=== PATIENT | male | born 1960 | race Caucasian/White ===

== ENCOUNTER → 2023-10-04 07:21 | Outpatient (REF) | payer OTHER, SELFPAY | LOC: RAD 07:21 | PROVIDERS: ATTENDING PHYSICIAN Surgery; FAMILY PHYSICIAN Family Medicine | DX: K43.9 Ventral hernia without obstruction or gangrene (principal) | CPT/HCPCS: 74177; Q9967 ==

== ENCOUNTER → 2023-10-24 10:36 | Outpatient (REF) | payer OTHER, SELFPAY ==
[2023-10-24 11:04] VITALS: BP 123/82; BP_SYST 63
[2023-10-24 13:27] VITALS: BP 103/76
== END ==
LOC: RADI 10:36
PROVIDERS: ATTENDING PHYSICIAN Surgery; FAMILY PHYSICIAN Family Medicine
DX: K43.9 Ventral hernia without obstruction or gangrene (principal)
CPT/HCPCS: 64647; 76942; 99152; 99153; J0585

== ENCOUNTER → 2023-11-04 07:35 | Outpatient (REF) | payer OTHER, SELFPAY | LOC: RAD 07:35 | PROVIDERS: ATTENDING PHYSICIAN Nurse Practitioner Family; FAMILY PHYSICIAN Family Medicine | DX: F17.210 Nicotine dependence, cigarettes, uncomplicated (principal) | CPT/HCPCS: 71271 ==

== ENCOUNTER 2023-11-30 06:17 | Inpatient (IN) | payer MEDICARE, OTHER, SELFPAY ==
[2023-11-22 07:05] VITALS: BMI 32.9
[2023-11-22 09:21] LABS: Hematocrit 49.5 % (39.0-52.0); Hemoglobin 16.8 g/dL (13.0-18.0); Mean Corp Hgb Conc. 33.9 g/dL (33.0-37.0); Mean Corpuscular Hgb 30.3 pg (27.0-31.0); Mean Corpuscular Volume 89.2 fL (80.0-94.0); Mean Platelet Volume 9.5 fL (7.4-10.4); Platelet Count 170 10^3/uL (130-400); Red Blood Cell Count 5.55 10^6/uL (4.70-6.10); Red Cell Dist. Width 12.5 % (11.5-14.5); White Blood Cell Count 5.9 10^3/uL (4.8-10.8)
[2023-11-22 09:35] LABS: Blood Urea Nitrogen 25 mg/dl (9-20); Calcium 9.8 mg/dl (8.4-10.2); Carbon Dioxide 28 mmol/L (22-30); Chloride 100 mmol/L (98-107); Estimated Creatinine Clearance 123 ml/min; Glucose 102 mg/dl (70-99); Potassium 4.4 mmol/L (3.5-5.1); Sodium 138 mmol/L (135-145); eGFR > 60.00
[2023-11-30] VITALS (16 sets, daily range): BP systolic 5–120; BP diastolic 62–79; BMI 32.9
[2023-11-30] MEDS: TYLENOL 1000 MG PO (08:15)
[2023-11-30] MEDS: NORMOSOL-R 1000 IV (08:15)
--- NOTE | 2023-11-30 15:53 | W.IMMPOSTOP ---
Addendum entered and electronically signed by Refugio Snider MD 12/21/23 13:47:
Dic# [id number]
Original Note:
Surgical Immed Post Op Note
-
Primary Surgeon: Tylor
Assisting Surgeon: Stephanie
Pre-op Diagnosis: Recurrent ventral incisional hernia
Post-op Diagnosis: Recurrent ventral incisional hernia
Procedure Performed: Open recurrent ventral incisional hernia repair with mesh, bilateral posterior myofascial releases (TAR), extensive lysis of adhesions
Anesthesia Type: General
Specimen / Cultures: None
Estimated Blood Loss: 23 cc
Complications: None
Operative Findings:
1. Extensive filmy adhesions in upper abdomen, denser adhesions of small bowel within pelvis, no serosal tears or enterotomies
2. Fascial defect approximately 17 x 23 cm
3. Bilateral posterior myofascial releases (TAR)
4. Posterior primary closure with 2-0 Stratafix spiral PDS
5. Prolene 45 x 50 cm mesh
6. Anterior primary closure incorporating hernia sac with #1 Stratafix symmetric PDS
7. RIGHT lower RIVERA into posterior rectus inferior space, LEFT RIVERA into posterior rectus cranial space, RIGHT upper RIVERA into subcutaneous space
[2023-11-30] MEDS: DILAUDID 0.5 MG IV ×2 (16:19→20:15)
[2023-11-30] MEDS: TORADOL 10 MG IV (17:32)
[2023-11-30] MEDS: DEMEROL 12.5 MG IV (17:53)
--- NOTE | 2023-11-30 20:00 | PTCARENOTE ---
Received pt from PACU in room 2125. AAOx3. VSS. On 3L NC with pox 94%. Medial Abdomen has Aquacel dressing that is dry and intact. Two RIVERA drains on the right and one on the left, dressings dry and intact. Reporting moderate-severe pain. See
assessment. Patient oriented to room, resting comfortably in bed with call triplett within reach.
[2023-11-30] MEDS: TYLENOL 650 MG PO (20:14)
[2023-11-30] MEDS: NORMOSOL-R IV (22:30)
[2023-12-01] MEDS: TYLENOL 650 MG PO ×5 (00:02→20:06)
[2023-12-01] MEDS: DILAUDID 0.5 MG IV ×4 (01:55→20:22)
[2023-12-01 03:15] VITALS: BP 127/74
[2023-12-01] MEDS: TYLENOL PO (03:54)
[2023-12-01] MEDS: NORMOSOL-R 1000 IV ×2 (04:47→16:19)
[2023-12-01 06:00] VITALS: BMI 32.0
[2023-12-01 06:25] LABS: Hematocrit 44.1 % (39.0-52.0); Hemoglobin 15.3 g/dL (13.0-18.0); Mean Corp Hgb Conc. 34.7 g/dL (33.0-37.0); Mean Corpuscular Hgb 30.1 pg (27.0-31.0); Mean Corpuscular Volume 86.8 fL (80.0-94.0); Platelet Count 189 10^3/uL (130-400); Red Blood Cell Count 5.08 10^6/uL (4.70-6.10); Red Cell Dist. Width 12.7 % (11.5-14.5)
--- NOTE | 2023-12-01 06:41 | PTCARENOTE ---
Removed carmen catheter at about 0630 per order. Patient resting comfortably but motivated to ambulate this AM. Call triplett within reach.
[2023-12-01 06:54] LABS: Blood Urea Nitrogen 23 mg/dl (9-20); Calcium 8.1 mg/dl (8.4-10.2); Carbon Dioxide 27 mmol/L (22-30); Chloride 99 mmol/L (98-107); Estimated Creatinine Clearance 121 ml/min; Glucose 141 mg/dl (70-99); Potassium 4.1 mmol/L (3.5-5.1); Sodium 135 mmol/L (135-145); eGFR > 60.00
[2023-12-01 07:00] VITALS: BP 114/78
--- NOTE | 2023-12-01 07:50 | W.PN.GS2 ---
Today's Communication / Plan
-
-- Clears ADAT to fulls
-- Pain control: Tylenol, Toradol, Oxycodone, IV Dilaudid PRN
-- Decrease IVF
-- Home statin, Flomax and BB, hold on other HTN meds for now (likely resume tomorrow)
-- OOB/ambulate, IS
Assessment / Plan
-
Patient is a 62 yo M POD#1 s/p open recurrent ventral incisional hernia repair with mesh, bilateral myofascial releases, extensive lysis of adhesions
Recovering well. No postoperative concerns.
-- Clears ADAT to fulls
-- Pain control: Tylenol, Toradol, Oxycodone, IV Dilaudid PRN
-- Decrease IVF
-- Home statin, Flomax and BB, hold on other HTN meds for now (likely resume tomorrow)
-- OOB/ambulate, IS
-- DVT: Lovenox
-- Maintain JPs (likely need on DC)
-- Floor status
Subjective Data
-
Date of Service: December 01, 2023
No major complaints. Pain overall well-controlled. No nausea or vomiting. No flatus or BM. Parham removed, due to void. No ambulation yet postop.
Objective Data
-
Intake and Output
11/30/23 12/01/23 12/02/23
06:59 06:59 06:59
Intake Total 3200 / 3200
Output Total 1520 / 1520
Balance 1680 / 1680
Intake:
Oral fluids 1200 / 1200
IV fluids (Total) 2000 / 2000
norm 800 / 800
Output:
Drain Output (Total) 320 / 320
Left Lower Abdomen Benigno- 55 / 55
Whitaker A
Right Lower Abdomen Benigno- 125 / 125
Whitaker B
Right Lower Abdomen Benigno- 140 / 140
Whitaker C
Urine, Parham 1200 / 1200
Vital Signs
Temp Pulse Resp BP Pulse Ox
97.7 F 92 18 127/74 93
12/01/23 03:15 12/01/23 03:15 12/01/23 03:15 12/01/23 03:15 12/01/23 03:15
Lab Results
12/01/23 05:44
12/01/23 05:44
Calcium 8.1 mg/dl (8.4-10.2) L 12/01/23 05:44
Physical Exam
-
Gen: NAD
Abd: soft, mild tenderness, ND, non-peritoneal, midline dressing c/d/i, RIVERA thin light sanguinous
[2023-12-01] MEDS: TOPROL XL 25 MG PO (09:27)
[2023-12-01] MEDS: CRESTOR 40 MG PO (09:27)
[2023-12-01] MEDS: FLOMAX 0.800000000000000044 MG PO (09:28)
[2023-12-01 11:15] VITALS: BP 116/72
--- NOTE | 2023-12-01 14:30 | CM ---
POD #1 incisional hernia repair: Initial assessment completed with patient with and daughter in room. Patient lives with his , son, D-I-L and 2 y/o granddaughter in a 1 story home with basement and 3+3 steps to enter, [employer] was independent
and drove. DME in home but does not use is [facility], Quad cane and RW, no in-home services, no psychiatric hospitalizations. Pharmacy is [facility] on [address] [facility] in [place] and PCP is Dr. Shar Simpson. Discharge Plan of Care: Anticipate home with no needs.
If drains remain then HH VN. Preference if [facility].
[2023-12-01 15:00] VITALS: BP 104/64
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
--- NOTE | 2023-12-01 17:31 | W.PN.SURGUPD ---
Surgical Update
Surgical Update
Report from nursing that patient complaints of RIGHT shoulder pain and a lump on his head. Positioning in OR with bl arms out for improved IV access by anesthesia, likely stiff from positioning as an acute on chronic issue. Cannot explain lump on
head. No reported neuro issues. No issues with positioning or patient safety during OR proceedings. No reports to my knowledge of trauma post-op. X-ray shoulder and CT head ordered. Attempted to call patients room, no response. Will discuss
with patient further tomorrow.
[2023-12-01] MEDS: LOVENOX 40 MG SC (18:38)
[2023-12-01] MEDS: ROXICODONE 5 MG PO (22:42)
[2023-12-01 22:49] VITALS: BP 101/56
[2023-12-02] MEDS: TYLENOL 650 MG PO ×6 (00:30→23:36)
[2023-12-02] MEDS: DILAUDID 0.5 MG IV ×3 (00:43→23:36)
[2023-12-02] MEDS: NORMOSOL-R 1000 IV (02:35)
[2023-12-02 07:00] LABS: Hematocrit 39.2 % (39.0-52.0); Hemoglobin 13.9 g/dL (13.0-18.0); Mean Corp Hgb Conc. 35.5 g/dL (33.0-37.0); Mean Corpuscular Hgb 30.9 pg (27.0-31.0); Mean Corpuscular Volume 87.1 fL (80.0-94.0); Platelet Count 155 10^3/uL (130-400); Red Cell Dist. Width 12.9 % (11.5-14.5); White Blood Cell Count 9.2 10^3/uL (4.8-10.8)
[2023-12-02 07:01] VITALS: BP 128/73
[2023-12-02 07:21] LABS: Blood Urea Nitrogen 18 mg/dl (9-20); Calcium 8.3 mg/dl (8.4-10.2); Carbon Dioxide 26 mmol/L (22-30); Chloride 102 mmol/L (98-107); Estimated Creatinine Clearance > 125 ml/min; Glucose 98 mg/dl (70-99); Potassium 3.5 mmol/L (3.5-5.1); Sodium 135 mmol/L (135-145); eGFR > 60.00
[2023-12-02] MEDS: FLOMAX 0.800000000000000044 MG PO (07:35)
[2023-12-02] MEDS: CRESTOR 40 MG PO (07:35)
[2023-12-02] MEDS: TOPROL XL 25 MG PO (07:35)
[2023-12-02] MEDS: TYLENOL PO (07:35)
--- NOTE | 2023-12-02 07:37 | W.PN.GS2 ---
Today's Communication / Plan
-
-- Regular diet
-- HLIV
-- Abdominal binder
Assessment / Plan
-
Patient is a 62 yo M POD#2 s/p open recurrent ventral incisional hernia repair with mesh, bilateral myofascial releases, extensive lysis of adhesions
Recovering well. No postoperative concerns.
-- Regular diet
-- Pain control: Tylenol, Toradol, Oxycodone, IV Dilaudid PRN
-- HLIV
-- Home statin, Flomax and BB, hold on other HTN meds for now (BP softer, holding for now)
-- OOB/ambulate, IS
-- DVT: Lovenox
-- Maintain US with therapy JPs (likely need on DC), abdominal binder
-- Floor status
Subjective Data
-
Date of Service: December 02, 2023
Complains of back, shoulder, and abdominal soreness. No nausea or vomiting. Passing minimal flatus, no BM. No fevers. Ambulating. Voiding.
Objective Data
-
Intake and Output
12/01/23 12/02/23 12/03/23
06:59 06:59 06:59
Intake Total 3200 / 3200 2440 / 2440
Output Total 1520 / 1520 2420 / 2420
Balance 1680 / 1680 20 / 20
Intake:
Oral fluids 1200 / 1200 1480 / 1480
IV fluids (Total) 2000 / 1999 960 / 960
norm 800 / 800
Output:
Drain Output (Total) 320 / 320 390 / 390
Left Lower Abdomen Benigno- 55 / 55 130 / 130
Whitaker A
Right Lower Abdomen Beningo- 125 / 125 170 / 170
Whitaker B
Right Lower Abdomen Benigno- 140 / 140 90 / 90
Whitaker C
Urine, Parham 1200 / 1200
Urine, Voided 2029
Vital Signs
Temp Pulse Resp BP Pulse Ox
98.3 F 85 20 128/73 93
12/02/23 07:01 12/02/23 07:35 12/02/23 07:01 12/02/23 07:35 12/02/23 07:01
Lab Results
12/02/23 06:16
12/02/23 06:16
Calcium 8.3 mg/dl (8.4-10.2) L 12/02/23 06:16
Physical Exam
-
Gen: NAD
Abd: soft, appropriately tender to palpation, minimal distension, non-peritoneal, midline incision c/d/i, JPs serosang
[2023-12-02 10:00] VITALS: BMI 32.0
[2023-12-02 15:00] VITALS: BP 140/50
[2023-12-02] MEDS: ROXICODONE 5 MG PO ×2 (15:36→20:15)
[2023-12-02] MEDS: LOVENOX 40 MG SC (17:21)
--- NOTE | 2023-12-02 18:41 | CM ---
Discharge Plan of Care: Home with VN if RIVERA drains remain after discharge.
[2023-12-02 23:50] VITALS: BP 113/73
[2023-12-03] MEDS: ROXICODONE 5 MG PO ×3 (04:04→14:46)
[2023-12-03] MEDS: TYLENOL 650 MG PO ×5 (04:05→20:27)
[2023-12-03] MEDS: TUMS 2 TABLET PO (04:21)
[2023-12-03 04:58] LABS: Hemoglobin 14.3 g/dL (13.0-18.0); Mean Corp Hgb Conc. 34.9 g/dL (33.0-37.0); Mean Corpuscular Hgb 30.8 pg (27.0-31.0); Mean Corpuscular Volume 88.4 fL (80.0-94.0); Mean Platelet Volume 9.2 fL (7.4-10.4); Platelet Count 151 10^3/uL (130-400); Red Blood Cell Count 4.64 10^6/uL (4.70-6.10); Red Cell Dist. Width 12.8 % (11.5-14.5); White Blood Cell Count 9.3 10^3/uL (4.8-10.8)
[2023-12-03 05:21] LABS: Blood Urea Nitrogen 19 mg/dl (9-20); Calcium 8.6 mg/dl (8.4-10.2); Carbon Dioxide 25 mmol/L (22-30); Chloride 104 mmol/L (98-107); Estimated Creatinine Clearance > 125 ml/min; Glucose 99 mg/dl (70-99); Potassium 3.8 mmol/L (3.5-5.1); Sodium 137 mmol/L (135-145); eGFR > 60.00
[2023-12-03 07:05] VITALS: BP 133/79
[2023-12-03] MEDS: TOPROL XL 25 MG PO (08:09)
[2023-12-03] MEDS: FLOMAX 0.800000000000000044 MG PO (08:14)
[2023-12-03] MEDS: CRESTOR 40 MG PO (08:14)
[2023-12-03 09:50] VITALS: BMI 31.8
--- NOTE | 2023-12-03 10:55 | W.PN.GS2 ---
Today's Communication / Plan
-
dispo planning
Assessment / Plan
-
Patient is a 62 yo M POD#3 s/p open recurrent ventral incisional hernia repair with mesh, bilateral myofascial releases, extensive lysis of adhesions
Recovering well. No postoperative concerns.
AFVSS
O2 discontinued, sat 94% on RA
-- Regular diet
-- Pain control prn
-- Resume home meds
-- OOB/ambulate, IS
-- DVT: Lovenox
-- Maintain US with therapy JPs (likely need on DC), abdominal binder
Tentative d/c later today vs tomorrow
Subjective Data
-
Date of Service: December 03, 2023
Patient seen and examined at bedside with Dr. Irizarry. Denies n/v. Tolerating diet. Pain well managed. Passing flatus.
Objective Data
-
Intake and Output
12/02/23 12/03/23 12/04/23
06:59 06:59 06:59
Intake Total 2440 / 2440 480 / 480
Output Total 2420 / 2420 253 / 253
Balance 20 / 20 227 / 227
Intake:
Oral fluids 1480 / 1480 480 / 480
IV fluids (Total) 960 / 960
Output:
Drain Output (Total) 390 / 390 253 / 253
Left Lower Abdomen Benigno- 130 / 130 94 / 94
Whitaker A
Right Lower Abdomen Benigno- 170 / 170 74 / 74
Whitaker B
Right Lower Abdomen Benigno- 90 / 90 85 / 85
Whitaker C
Urine, Voided 2029 / 2029
Other:
Number of approximated MODERATE 3
amounts of urine
Vital Signs
Temp Pulse Resp BP Pulse Ox
97.8 F 75 18 133/89 94
12/03/23 07:05 12/03/23 08:09 12/03/23 07:05 12/03/23 08:09 12/03/23 10:11
Lab Results
12/03/23 04:25
12/03/23 04:25
Calcium 8.6 mg/dl (8.4-10.2) 12/03/23 04:25
Physical Exam
-
Gen: NAD
Abd: soft, appropriately tender to palpation, minimal distension, non-peritoneal, midline incision intact dermabond, JPs serosang
[2023-12-03] MEDS: ZESTRIL 2.5 MG PO (11:30)
[2023-12-03] MEDS: COLACE 100 MG PO ×2 (11:30→20:27)
--- NOTE | 2023-12-03 14:48 | W.DCSUMMARY ---
Discharge Summary
Discharge Data
Date of Admission: 11/30/23
Date of Discharge: 12/04/23
-
Pending Results: No
Hospital Course
62 yo male with a history of recurrent ventral incisional hernia who presented for scheduled repair. He underwent open recurrent ventral incisional hernia repair with mesh, bilateral posterior myofascial releases (TAR), and extensive lysis of
adhesions. Three RIVERA drains were left in place post operatively and upon discharge for removal in the outpatient setting. Diet was able to be advanced and well tolerated with resumption of home meds post operatively. He was able to void after removal
of perioperative carmen. He was discharged to home with family once pain was well controlled and he had return of bowel function.
Discharge Plan
-
Patient Disposition: Home (Routine Discharge)
Discharge Diagnosis/Procedures: Open abdominal incisional hernia repair with mesh and bilateral muscle releases
Condition: Good
Diet: Regular
Activity: No strenuous activity
Additional Activity: No heavy lifting (>20 lb) or strenuous activities for 6 weeks postoperatively
Driving Restrictions: No driving if too sore or taking narcotics
Bathing Restrictions: OK to Shower
Wound Care: Keep incision clean and dry. Glue will flake off in 2 to 3 weeks. Stitches will dissolve. Use abdominal binder for 4 to 6 weeks postoperatively. RIVERA drains to be removed in the office. Empty RIVERA's and record outputs daily. Call when
outputs for a RIVERA are less than 20 mL over a 48-hour period.
Activity Restrictions/Additional Instructions:
Call for fevers (>100.5), worsening abdominal pain, nausea or vomiting
Instructions: Benigno-Whitaker Drain, How to Keep Track of Your Drainage
Referrals:
Shar Simpson MD [Family Provider] -
Refugio Snider MD [Active] - in two to four weeks
Prescriptions:
New
ibuprofen 200 mg tablet
400 - 600 mg PO Q6HPRN PRN (Reason: moderate pain) Qty: 1 0RF
oxycodone 5 mg tablet
5 mg PO Q4HPRN PRN (Reason: breakthrough/severe pain) Qty: 20 0RF
Continued
aspirin 81 MG tablet,delayed release (DR/EC)
81 mg PO DAILY
ascorbic acid (vitamin C) [Vitamin C] 500 MG tablet
1,000 mg PO DAILY
Glucosamine Sulf-Chondroitin 1 EACH capsule
2 cap PO DAILY
Men 50 Plus Multivitamin 1 EACH tablet
1 ea PO DAILY
zinc acetate 50 mg (zinc) Capsule
50 mg PO DAILY
metoprolol succinate 25 mg Tablet Extended Release 24 Hr
25 mg PO DAILY
tamsulosin 0.4 MG capsule
0.8 mg PO DAILY
acetaminophen [Tylenol] 325 mg Capsule
650 mg PO Q4H PRN (Reason: pain)
folic acid 400 mcg Tablet
0.4 mg PO DAILY
hydrochlorothiazide 25 mg Tablet
25 mg PO DAILY
cholecalciferol (vitamin D3) [Vitamin D3] 50 mcg (2,000 unit) Capsule
50 mcg PO DAILY
lisinopril 2.5 mg Tablet
2.5 mg PO DAILY
rosuvastatin 40 mg Tablet
40 mg PO DAILY
docusate sodium [Stool Softener] 100 mg Capsule
100 mg PO BID
Discharge Orders:
Discharge Patient (As Directed); Ordered 12/04/23
Ordered By: Bhumi Griffith
Discharge Date and Time
Print Language: MOHAWK
[2023-12-03 15:00] VITALS: BP 107/66
--- NOTE | 2023-12-03 15:30 | CM ---
CM following re: discharge planning.
Reviewed pt's chart, met with pt.
According to pt will be discharged home tomorrow. Pt is aware, expressed his agreement and he stated his daughter will transport home. IMM reviewed, placed on chart, pt has a copy.
Pt will have have drain at discharge. Pt stated he knows how to care and accepted VN services: RN for drain care. Pt preferred [facility]. A referral to [facility] made.
Please fax discharge instructions to [facility] at [phone].
D/C plan: home with [facility] and family support. Daughter to transport at discharge.
CM will follow to assist pt with discharge plan updates as needed.
[2023-12-03] MEDS: LOVENOX 40 MG SC (17:06)
[2023-12-03] MEDS: DILAUDID 0.5 MG IV (22:12)
[2023-12-03 23:40] VITALS: BP 106/58
[2023-12-04] MEDS: TUMS 2 TABLET PO (00:27)
[2023-12-04] MEDS: TYLENOL 650 MG PO ×4 (00:27→11:23)
[2023-12-04 03:10] VITALS: BMI 31.7
[2023-12-04] MEDS: ROXICODONE 5 MG PO ×2 (03:38→11:23)
[2023-12-04 07:00] VITALS: BP 117/72
[2023-12-04] MEDS: CRESTOR 40 MG PO (07:42)
[2023-12-04] MEDS: FLOMAX 0.800000000000000044 MG PO (07:42)
[2023-12-04] MEDS: COLACE 100 MG PO (07:42)
[2023-12-04] MEDS: TOPROL XL 25 MG PO (07:48)
[2023-12-04] MEDS: ZESTRIL 2.5 MG PO (07:48)
--- NOTE | 2023-12-04 09:49 | W.PN.GS2 ---
Today's Communication / Plan
-
dispo planning
Assessment / Plan
-
Patient is a 62 yo M POD#4 s/p open recurrent ventral incisional hernia repair with mesh, bilateral myofascial releases, extensive lysis of adhesions
Recovering well. No postoperative concerns.
AFVSS
-- Regular diet
-- Pain control prn
-- Resume home meds
-- OOB/ambulate, IS
-- DVT: Lovenox
-- Maintain US with therapy JPs (continue on DC), abdominal binder
d/c home today
Subjective Data
-
Date of Service: December 04, 2023
Patient seen and evaluated at bedside. Pain well controlled. Tolerating diet. Feels ready to go home. Feels comfortable managing drains/dressings.
Objective Data
-
Intake and Output
12/03/23 12/04/23 12/05/23
06:59 06:59 06:59
Intake Total 480 / 480 960 / 960
Output Total 253 / 253 259 / 259
Balance 227 / 227 701 / 701
Intake:
Oral fluids 480 / 480 960 / 960
Output:
Drain Output (Total) 253 / 253 259 / 259
Left Lower Abdomen [place]- 94 / 55 / 55
Whitaker A
Right Lower Abdomen [place]- 74 / 74 152 / 152
Whitaker B
Right Lower Abdomen [facility] 85 / 52 / 52
Whitaker C
Other:
Number of approximated MODERATE 3 5
amounts of urine
Number of unmeasured liquid
stools
Rectum 1
Vital Signs
Temp Pulse Resp BP Pulse Ox
97.9 F 87 18 117/72 94
12/04/23 07:00 12/04/23 07:48 12/04/23 07:00 12/04/23 07:48 12/04/23 07:00
Lab Results
12/03/23 04:25
12/03/23 04:25
Calcium 8.6 mg/dl (8.4-10.2) 12/03/23 04:25
Physical Exam
-
Gen: NAD
Abd: soft, appropriately tender to palpation, minimal distension, non-peritoneal, midline incision intact Chaz jean serosang
--- NOTE | 2023-12-04 10:34 | CM ---
CM following re: discharge planning.
Reviewed pt's chart, met with pt.
Discharge order noted. . Pt is aware, expressed his agreement and he stated his daughter will transport home. IMM reviewed,yesterday.
Pt will have have drain at discharge. Pt stated he knows how to care and accepted VN services: RN for drain care. Pt preferred [facility]. A referral to [facility] made.
Please fax discharge instructions to [facility] at [phone].
D/C plan: home with [facility] and family support. Daughter to transport at discharge.
[2023-12-04 12:24] VITALS: BP 118/70
== END 2023-12-04 12:32 | disposition home health service (06) | DRG 337 ==
LOC: 2 NORTH 06:17
PROVIDERS: ADMITTING PHYSICIAN Surgery; FAMILY PHYSICIAN Family Medicine
PROC: 0DN80ZZ Release Small Intestine, Open Approach (ICD-10-PCS; 2023-11-30)
PROC: 0KNK0ZZ Release Right Abdomen Muscle, Open Approach (ICD-10-PCS; 2023-11-30)
PROC: 0KNL0ZZ Release Left Abdomen Muscle, Open Approach (ICD-10-PCS; 2023-11-30)
PROC: 0WUF0JZ Supplement Abdominal Wall with Synthetic Substitute, Open Approach (ICD-10-PCS; 2023-11-30)
DX: K43.2 Incisional hernia without obstruction or gangrene (principal); K66.0 Peritoneal adhesions (postprocedural) (postinfection); I10 Essential (primary) hypertension; E78.00 Pure hypercholesterolemia, unspecified; N40.0 Benign prostatic hyperplasia without lower urinary tract symptoms; F17.200 Nicotine dependence, unspecified, uncomplicated; Z86.718 Personal history of other venous thrombosis and embolism; Z87.19 Personal history of other diseases of the digestive system; Z86.711 Personal history of pulmonary embolism; Z90.49 Acquired absence of other specified parts of digestive tract; Z82.49 Family history of ischemic heart disease and other diseases of the circulatory system; Z80.42 Family history of malignant neoplasm of prostate; Z80.8 Family history of malignant neoplasm of other organs or systems; Z82.0 Family history of epilepsy and other diseases of the nervous system
CPT/HCPCS: 36415; 70450; 71046; 73030; 80048; 85027; 86850; 86900; 86901; C1781

== ENCOUNTER → 2024-02-17 12:01 | Outpatient (REF) | payer MEDICARE, OTHER, SELFPAY | LOC: MRI 3T 12:01 | PROVIDERS: ATTENDING PHYSICIAN Specialist; FAMILY PHYSICIAN Family Medicine | DX: R97.20 Elevated prostate specific antigen [PSA] (principal) | CPT/HCPCS: 72197; A9575 ==

== ENCOUNTER → 2024-04-18 11:34 | Outpatient (REF) | payer MEDICARE, OTHER, SELFPAY | LOC: CLAB 11:34 | PROVIDERS: ATTENDING PHYSICIAN Specialist | DX: R97.20 Elevated prostate specific antigen [PSA] (principal) | CPT/HCPCS: 88305 ==

== ENCOUNTER 2024-08-07 06:11 | Inpatient (IN) | payer MEDICARE, OTHER, SELFPAY ==
[2024-07-24 09:03] LABS: Hematocrit 47.3 % (39.0-52.0); Hemoglobin 16.3 g/dL (13.0-18.0); Mean Corp Hgb Conc. 34.5 g/dL (33.0-37.0); Mean Corpuscular Hgb 29.8 pg (27.0-31.0); Mean Corpuscular Volume 86.5 fL (80.0-94.0); Mean Platelet Volume 8.8 fL (7.4-10.4); Platelet Count 208 10^3/uL (130-400); Red Blood Cell Count 5.47 10^6/uL (4.70-6.10); Red Cell Dist. Width 12.7 % (11.5-14.5); White Blood Cell Count 6.3 10^3/uL (4.8-10.8)
[2024-07-24 09:07] LABS: INR 1.06; PT 14.1 Sec (11.4-14.6)
[2024-07-24 09:08] LABS: APTT 26.9 Sec (23.4-35.0)
[2024-07-24 09:32] LABS: Blood Urea Nitrogen 17 mg/dl (9-20); Calcium 9.5 mg/dl (8.4-10.2); Carbon Dioxide 29 mmol/L (22-30); Chloride 99 mmol/L (98-107); Glucose 105 mg/dl (70-99); Potassium 4.2 mmol/L (3.5-5.1); Sodium 138 mmol/L (135-145); eGFR > 60.00
[2024-07-24 11:00] VITALS: BMI 33.9
[2024-08-07] VITALS (18 sets, daily range): BP systolic 90–127; BP diastolic 55–81; BMI 33.9
[2024-08-07] MEDS: NEOMYCIN ENEMA 1 BOTTLE RECTAL (06:46)
[2024-08-07] MEDS: NORMOSOL-R/PLASMALYTE-A 1000 IV (07:09)
--- NOTE | 2024-08-07 09:22 | W.IMMPOSTOP ---
Surgical Immed Post Op Note
-
Primary Surgeon:
petar
Assisting Surgeon:
ruenes
Pre-op Diagnosis:
prostate cancer
Post-op Diagnosis:
same
Procedure Performed:
RPP
Anesthesia Type:
gen
Specimen / Cultures:
prostate
Estimated Blood Loss:
100cc
Complications:
none
Operative Findings:
uncomplicated RPP
to pacu in stable condition
[2024-08-07 10:31] LABS: Hematocrit 43.9 % (39.0-52.0); Mean Corp Hgb Conc. 34.2 g/dL (33.0-37.0); Mean Corpuscular Hgb 29.8 pg (27.0-31.0); Mean Corpuscular Volume 87.3 fL (80.0-94.0); Mean Platelet Volume 9.2 fL (7.4-10.4); Platelet Count 173 10^3/uL (130-400); Red Blood Cell Count 5.03 10^6/uL (4.70-6.10); Red Cell Dist. Width 13.1 % (11.5-14.5); White Blood Cell Count 9.8 10^3/uL (4.8-10.8)
[2024-08-07] MEDS: NSS with KCL 20 MEQ 1000 IV ×2 (10:36→20:20)
[2024-08-07 10:43] LABS: Blood Urea Nitrogen 16 mg/dl (9-20); Calcium 8.4 mg/dl (8.4-10.2); Carbon Dioxide 28 mmol/L (22-30); Chloride 99 mmol/L (98-107); Estimated Creatinine Clearance 106 ml/min; Glucose 158 mg/dl (70-99); Potassium 4.1 mmol/L (3.5-5.1); Sodium 136 mmol/L (135-145); eGFR > 60.00
[2024-08-07] MEDS: ROCEPHIN IV (10:59)
--- NOTE | 2024-08-07 12:15 | PTCARENOTE ---
Pt received from the PACU via bed. Transport was w/o incident. Pt is AAOx3, HR reg/Irreg. Apical pulse 60's. VSS, Pt is afebrile, Lungs are clear, resp. easy. Pt's rectal area/perineum with bulky dressings w/ Abd pads w/ medipore tape. Sanquinous
shadowing noted, suspected. Will reinforce as ordered & needed. Pt with carmen cath. intact draining blue urine d/t medication received. Pt report pain as milds at present, and denies nausea. Pt instructed on plan of care, and on voicing cares and
concerns to nursing staff. Pt verbalized understanding of instructions. Call triplett is within reach.
[2024-08-07] MEDS: DILAUDID 0.5 MG IV ×2 (13:51→21:01)
[2024-08-07] MEDS: DETROL LA 4 MG PO (15:30)
[2024-08-07] MEDS: TORADOL 15 MG IV (18:27)
[2024-08-07] MEDS: COLACE 100 MG PO (21:01)
[2024-08-08] MEDS: TORADOL 15 MG IV ×3 (02:21→17:44)
[2024-08-08] MEDS: DILAUDID 0.5 MG IV ×3 (02:21→21:29)
--- NOTE | 2024-08-08 02:45 | PTCARENOTE ---
Rectal dressing changed r/t mod amount of serosanguineous drainage and dsg becoming uncomfortable for pt r/t to adjusting in bed.
[2024-08-08 04:29] VITALS: BP 86/51
[2024-08-08 05:30] VITALS: BP 92/54
[2024-08-08] MEDS: NSS with KCL 20 MEQ 1000 IV (05:47)
[2024-08-08 06:51] LABS: Hematocrit 40.1 % (39.0-52.0); Hemoglobin 13.3 g/dL (13.0-18.0); Mean Corp Hgb Conc. 33.2 g/dL (33.0-37.0); Mean Corpuscular Hgb 29.6 pg (27.0-31.0); Mean Corpuscular Volume 89.1 fL (80.0-94.0); Mean Platelet Volume 9.3 fL (7.4-10.4); Platelet Count 165 10^3/uL (130-400); Red Cell Dist. Width 13.3 % (11.5-14.5); White Blood Cell Count 9.8 10^3/uL (4.8-10.8)
[2024-08-08 07:17] LABS: Blood Urea Nitrogen 27 mg/dl (9-20); Calcium 8.3 mg/dl (8.4-10.2); Carbon Dioxide 29 mmol/L (22-30); Chloride 102 mmol/L (98-107); Estimated Creatinine Clearance 106 ml/min; Glucose 98 mg/dl (70-99); Potassium 4.4 mmol/L (3.5-5.1); Sodium 137 mmol/L (135-145); eGFR > 60.00
[2024-08-08 07:30] VITALS: BP 103/65
--- NOTE | 2024-08-08 07:57 | W.PN.URO.CBU ---
Today's Communication / Plan
-
routine post op care
Assessment / Plan
-
s/p RPP
stable
UOOB
clear liquid diet
carmen to leg bag
plan for dressing and drain removal tomorrow with diet advance and possible discharge
Diagnosis
-
Date of Service: August 08, 2024
-
Patient Diagnosis:
prostate cancer
Post Op Day:
RPP 08/07
Subjective
-
pt doing well
some incisional pain
minimal wound drainage
urine clear
all labs normal
Objective
-
Vital Signs
Temp Pulse Resp BP Pulse Ox
98.3 F 55 16 92/54 97
08/08/24 04:29 08/08/24 05:30 08/08/24 04:29 08/08/24 05:30 08/08/24 04:29
Intake and Output
08/07/24 08/08/24 08/09/24
06:59 06:59 06:59
Intake Total 2530 / 2530
Output Total 600 / 600
Balance 1930 / 1930
Intake:
Oral fluids 1080 / 1080
IV fluids (Total) 1450 / 1450
NSS with 20MEQ KCL @ 100 ML/HR 150 / 150
Normosol 100 / 100
Output:
Urine, Carmen 600 / 600
Laboratory Results
08/08/24 06:07
08/08/24 06:07
Review of Systems
-
Constitutional: Fatigue
Respiratory: No Symptoms
Cardiac: No Symptoms
Abdomen/GI: No Symptoms
: Other (carmen)
Physical Exam
-
General - no acute distress
Abdomen - soft, non-tender
Genitalia - normal- carmen in place
Skin - warm & dry with no rash
Neuro - AOx3, no motor deficits
Extremities - no clubbing, no cyanosis, no edema
Dressing - expected sero-sang spotting
[2024-08-08] MEDS: FOLVITE 0.8 MG PO (08:21)
[2024-08-08] MEDS: VITAMIN C 1000 MG PO (08:21)
[2024-08-08] MEDS: ORETIC 25 MG PO (08:22)
[2024-08-08] MEDS: VITAMIN D3 (cholecalciferol) 50 MCG PO (08:22)
[2024-08-08] MEDS: COLACE 100 MG PO ×2 (08:22→21:15)
[2024-08-08] MEDS: DETROL LA 4 MG PO (08:22)
[2024-08-08] MEDS: TOPROL XL 25 MG PO (08:22)
[2024-08-08] MEDS: ASPIR LOW (ENTERIC COATED) 81 MG PO (08:22)
[2024-08-08] MEDS: STERILE WATER FOR INJECTION 10 ML IV (08:23)
[2024-08-08] MEDS: ROCEPHIN 1000 MG IV (08:23)
[2024-08-08] MEDS: ZESTRIL 2.5 MG PO (08:23)
--- NOTE | 2024-08-08 10:59 | CM ---
Patient seen at bedside.
IA complete - case management consult completed for VN
Options reviewed - VN preferred - referral placed in careport. Notified liaison
prostate cancer
RPP 08/07
Lives with in a 2 story home, 6 steps to enter, 12 steps to 2nd floor
PLOF: independent
DME: deirdre birch
PCP: Shra Simpson
Pharmacy: [address], [place]
PLAN: home, [facility]
[2024-08-08 11:11] VITALS: BP 102/60
--- NOTE | 2024-08-08 11:58 | VNURNOTE ---
Home Health Liaison met with patient at bedside to discuss [facility] nurse/therapy, visits, schedule and homebound status. Patient is agreeable and understands that visits at home will be 2-3 x per week to assess and teach medical management, carmen care.
[facility] brochure provided with contact information. Patient is aware that [facility] will contact them for start of care in 1-2 days after discharge from .
[facility] referral completed in [facility].
[2024-08-08 13:45] VITALS: BMI 34.0
[2024-08-08 15:21] VITALS: BP 102/57
--- NOTE | 2024-08-08 15:35 | PTCARENOTE ---
Patient to be transferred to [facility], Room 437 Bed 1; telephone report given to Martha MERCER at 15:35; patient sent in bed with belongings @15:45.
[2024-08-08 23:30] VITALS: BP 99/58
[2024-08-09] MEDS: TORADOL 15 MG IV (01:24)
[2024-08-09] MEDS: DILAUDID 0.5 MG IV ×3 (03:54→21:16)
[2024-08-09 06:00] VITALS: BMI 34.0
[2024-08-09 07:40] VITALS: BP 105/66
[2024-08-09] MEDS: COLACE 100 MG PO (08:31)
[2024-08-09] MEDS: VITAMIN C 1000 MG PO (08:32)
[2024-08-09] MEDS: ASPIR LOW (ENTERIC COATED) 81 MG PO (08:32)
[2024-08-09] MEDS: VITAMIN D3 (cholecalciferol) 50 MCG PO (08:32)
[2024-08-09] MEDS: DETROL LA 4 MG PO (08:32)
[2024-08-09] MEDS: ORETIC 25 MG PO (08:32)
[2024-08-09] MEDS: FOLVITE 0.8 MG PO (08:32)
[2024-08-09] MEDS: TOPROL XL PO (08:33)
[2024-08-09] MEDS: STERILE WATER FOR INJECTION 10 ML IV (08:33)
[2024-08-09] MEDS: ROCEPHIN 1000 MG IV (08:33)
[2024-08-09] MEDS: MILK OF MAGNESIA 30 ML PO (08:33)
[2024-08-09] MEDS: ULTRAM 50 MG PO (10:20)
[2024-08-09] MEDS: TORADOL IV (10:22)
--- NOTE | 2024-08-09 11:37 | W.PN.URO.CBU ---
Today's Communication / Plan
-
ambulate/reg diet
discharge tomorrow
Assessment / Plan
-
s/p RPP
stable
UOOB- ambulated today
reg liquid diet
carmen to leg bag
shower after each BM
discharge planning- expect tomorrow
Diagnosis
-
Date of Service: August 09, 2024
-
Patient Diagnosis:
prostate cancer
Post Op Day:
RPP 08/07
Subjective
-
pt doing okay
+ BM
urine clear- carmen flushes easily
dressing down- drain removed- incision d/i
Objective
-
Vital Signs
Temp Pulse Resp BP Pulse Ox
97.6 F 53 18 105/66 93
08/09/24 07:40 08/09/24 08:33 08/09/24 07:40 08/09/24 08:32 08/09/24 07:40
Intake and Output
08/08/24 08/09/24 08/10/24
06:59 06:59 06:59
Intake Total 2530 / 2530 240 / 240
Output Total 600 / 600 1450 / 1450
Balance 1930 / 1930 -1210 / -1210
Intake:
Oral fluids 1080 / 1080 240 / 240
IV fluids (Total) 1450 / 1450
NSS with 20MEQ KCL @ 100 ML/HR 150 / 150
Normosol 100 / 100
Output:
Urine, Carmen 600 / 600 1450 / 1450
Laboratory Results
08/08/24 06:07
08/08/24 06:07
Review of Systems
-
Constitutional: Fatigue
Respiratory: No Symptoms
Cardiac: No Symptoms
Abdomen/GI: No Symptoms
Physical Exam
-
General - no acute distress
Abdomen - soft, non-tender
Genitalia - normal- carmen in place
Rectal - normal
Skin - warm & dry with no rash
Neuro - AOx3, no motor deficits
Extremities - no clubbing, no cyanosis, no edema
Incision - clean, dry
[2024-08-09] MEDS: ZESTRIL PO (13:33)
[2024-08-09 13:35] VITALS: BP 113/68
--- NOTE | 2024-08-09 13:53 | CM ---
Chart reviewed and plan is to home when stable, possibly tomorrow.
Plan; Home when stable.
[2024-08-09 15:12] VITALS: BP 103/65
[2024-08-09] MEDS: COLACE PO (20:05)
[2024-08-09 23:26] VITALS: BP 114/66
[2024-08-10] MEDS: DILAUDID 0.5 MG IV (02:08)
[2024-08-10 07:00] VITALS: BP 115/75
[2024-08-10] MEDS: ASPIR LOW (ENTERIC COATED) 81 MG PO (08:31)
[2024-08-10] MEDS: DETROL LA 4 MG PO (08:31)
[2024-08-10] MEDS: VITAMIN C 1000 MG PO (08:31)
[2024-08-10] MEDS: COLACE 100 MG PO (08:31)
[2024-08-10] MEDS: VITAMIN D3 (cholecalciferol) 50 MCG PO (08:32)
[2024-08-10] MEDS: FOLVITE 0.8 MG PO (08:32)
[2024-08-10] MEDS: ROCEPHIN 1000 MG IV (08:33)
[2024-08-10] MEDS: ORETIC 25 MG PO (08:33)
[2024-08-10] MEDS: TOPROL XL 25 MG PO (08:34)
[2024-08-10] MEDS: STERILE WATER FOR INJECTION 10 ML IV (08:34)
[2024-08-10] MEDS: ZESTRIL 2.5 MG PO (08:34)
[2024-08-10] MEDS: ULTRAM 50 MG PO (08:35)
--- NOTE | 2024-08-10 10:24 | W.PN.URO.CBU ---
Today's Communication / Plan
-
discharge
Assessment / Plan
-
s/p RPP
discharge
Diagnosis
-
Date of Service: August 10, 2024
-
Patient Diagnosis:
prostate cancer
Post Op Day:
RPP 08/07
Subjective
-
pt doing well
urine clear
tolerating diet
minimal pain
wound dry and intact
Objective
-
Vital Signs
Temp Pulse Resp BP Pulse Ox
98.2 F 70 18 115/75 93
08/10/24 07:00 08/10/24 08:33 08/10/24 07:00 08/10/24 08:33 08/10/24 07:00
Intake and Output
08/09/24 08/10/24 08/11/24
06:59 06:59 06:59
Intake Total 240 / 240 960 / 960
Output Total 1450 / 1450 2850 / 2850
Balance -1210 / -1210 -1890 / -1890
Intake:
Oral fluids 240 / 240 960 / 960
Output:
Urine, Carmen 1450 / 1450 2600 / 2600
Urine, Voided 250 / 250
Laboratory Results
08/08/24 06:07
08/08/24 06:07
Review of Systems
-
Constitutional: No Symptoms
Respiratory: No Symptoms
Cardiac: No Symptoms
Abdomen/GI: No Symptoms
Physical Exam
-
General - no acute distress
Abdomen - soft, non-tender
Genitalia - normal- carmen in place
Rectal - normal
Skin - warm & dry with no rash
Neuro - AOx3, no motor deficits
Extremities - no clubbing, no cyanosis, no edema
Incision - clean, dry
--- NOTE | 2024-08-10 10:25 | W.DS.TRANS ---
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
-
Discharge Instructions:
Sleep Apnea Risk Intermediate
Discharge Diagnosis/Procedures prostate cancer- you had a radical perineal
prostatectomy
Diet No restrictions
Activity No strenuous activity
Additional Activity no lifting over 10lbs
Driving Restrictions Not until seen by your Dr
Bathing Restrictions OK to Shower
Other Services VN
Wound Care after each bowel movement- let warm soapy water
run over the incision and pad dry
expect some blood drainage from wound- this is
normal
expect some blood in urine and around carmen
catheter insertion site
Instructions:
Stand-Alone Forms:
Changes to Home Medications: No
Discharge Medications:
DC Medications w/original date entered in [employer]
ascorbic acid (vitamin C) 500 mg tablet (Vitamin C) 1,000 mg PO DAILY Supplement 08/14/21
aspirin 81 mg tablet,delayed release 81 mg PO DAILY Blood clot prevention/tx 08/14/21
yluwmnbi-nl-yczqq 300 mcg-K 60 mcg-lycop 600 mcg-lutein 300 mcg tablet (Men 50 Plus Multivitamin) 1 ea PO DAILY Supplement 08/14/21
metoprolol succinate 25 mg tablet,extended release 24 hr 25 mg PO DAILY Heart disease/condition 08/30/22
zinc acetate 50 mg (zinc) capsule 50 mg PO DAILY Supplement 08/30/22
cholecalciferol (vitamin D3) 50 mcg (2,000 unit) capsule (Vitamin D3) 50 mcg PO DAILY Supplement 11/24/23
docusate sodium 100 mg capsule (Stool Softener) 100 mg PO BID Constipation 11/24/23
folic acid 400 mcg tablet 0.8 mg PO DAILY Supplement 11/24/23
hydrochlorothiazide 25 mg tablet 25 mg PO DAILY Blood Pressure 11/24/23
lisinopril 2.5 mg tablet 2.5 mg PO DAILY Blood Pressure 11/24/23
rosuvastatin 40 mg tablet 40 mg PO DAILY High Cholesterol 11/24/23
vit [id number] 500 mg-50 mg-25 mg-40 mg tablet (Bioflex) 1 tab PO DAILY Supplement 08/02/24
magnesium citrate 150 ml PO ONCE Constipation 08/07/24
naproxen sodium 220 mg capsule (Aleve) 220 mg PO BID #60 caps 08/08/24
nitrofurantoin monohydrate/macrocrystals 100 mg capsule (Macrobid) 100 mg PO DAILY #14 caps 08/08/24
tramadol 50 mg tablet 50 mg PO Q8H PRN Pain #30 tabs 08/08/24
Home Medication Changes
Pending Results: Yes
Additional Pending Results:
prostate pathology
--- NOTE | 2024-08-10 11:26 | CM ---
Patient seen at bedside. Patient for discharge today. Patient completed IMM and signed form placed on chart. patient for discharge home with [facility] to follow. CM requested contact information for patient at his request for [facility]. Patient in process of
confirming ride home. CM will continue to follow for discharge planning needs.
Plan; home with [facility]
[2024-08-10] MEDS: TYLENOL 650 MG PO (12:33)
[2024-08-10 14:36] VITALS: BP 132/78
== END 2024-08-10 16:27 | disposition home health service (06) | DRG 708 ==
LOC: 4 WEST ACU 06:11
PROVIDERS: ADMITTING PHYSICIAN Specialist; FAMILY PHYSICIAN Family Medicine
PROC: 0VT00ZZ Resection of Prostate, Open Approach (ICD-10-PCS; 2024-08-07)
PROC: 0VT30ZZ Resection of Bilateral Seminal Vesicles, Open Approach (ICD-10-PCS; 2024-08-07)
PROC: 0TQC0ZZ Repair Bladder Neck, Open Approach (ICD-10-PCS; 2024-08-07)
DX: C61 Malignant neoplasm of prostate (principal)
CPT/HCPCS: 88305; 88309; 88332; 80048; 85027; 85610; 85730; 86850; 86900; 86901; 88331; 93005; A4648

== ENCOUNTER → 2024-09-10 13:09 | Outpatient (REF) | payer MEDICARE, OTHER, SELFPAY ==
[2024-09-10 13:37] LABS: % Basophils 0.5 % (0-2); % Eosinophils 1.6 % (0-6); % Immature Granulocytes 0.3 % (0-0.5); % Lymphocytes 27.7 % (20.5-51.1); % Monocytes 10.5 % (1.7-9.3); % Neutrophils 59.4 % (42.2-75.2); Absolute Eosinophils 0.1 10^3/uL (0-0.7); Absolute Lymphocytes 2.1 10^3/uL (1.2-3.4); Absolute Monocytes 0.8 10^3/uL (0.1-0.6); Absolute Neutrophils 4.6 10^3/uL (1.4-6.5); Hematocrit 45.7 % (39.0-52.0); Hemoglobin 16.1 g/dL (13.0-18.0); Mean Corp Hgb Conc. 35.2 g/dL (33.0-37.0); Mean Corpuscular Hgb 29.6 pg (27.0-31.0); Mean Platelet Volume 8.7 fL (7.4-10.4); Nucleated Red Blood Cells % 0 % (-); Platelet Count 220 10^3/uL (130-400); Red Blood Cell Count 5.44 10^6/uL (4.70-6.10); Red Cell Dist. Width 12.9 % (11.5-14.5); White Blood Cell Count 7.7 10^3/uL (4.8-10.8)
[2024-09-10 13:49] LABS: Blood Urea Nitrogen 20 mg/dl (9-20); Carbon Dioxide 29 mmol/L (22-30); Chloride 98 mmol/L (98-107); Glucose 77 mg/dl (70-99); Potassium 3.9 mmol/L (3.5-5.1); Sodium 138 mmol/L (135-145); eGFR > 60.00
== END ==
LOC: REG 13:09
PROVIDERS: ATTENDING PHYSICIAN Surgery; FAMILY PHYSICIAN Family Medicine
DX: R19.09 Other intra-abdominal and pelvic swelling, mass and lump (principal)
CPT/HCPCS: 36415; 80048; 85025

== ENCOUNTER → 2024-09-11 06:46 | Outpatient (REF) | payer MEDICARE, OTHER, SELFPAY | LOC: RAD 06:46 | PROVIDERS: ATTENDING PHYSICIAN Surgery; FAMILY PHYSICIAN Family Medicine | DX: R19.09 Other intra-abdominal and pelvic swelling, mass and lump (principal) | CPT/HCPCS: 74177; Q9967 ==